=== PATIENT | male | born 2000 | race Hispanic/Latino ===

== ENCOUNTER 2023-12-28 09:29 | Emergency (ER) | payer OTHER ==
[~2023-12-28] VITALS: Ht 170.2 cm; Wt 208.0 kg
[2023-12-28 10:06] VITALS: BP 139/92; TEMP 97.5; O2SAT 97
[2023-12-28] MEDS: IBUPROFEN 800 MG TAB PO ONE (10:18)
[2023-12-28] MEDS ORDERED: IBUP80TA PO (10:33)
== END 2023-12-28 10:46 | disposition home or self-care (01) ==
LOC: EDBD 09:29 → M ED 09:29
DX: M54.50 Low back pain, unspecified (principal); V49.40XA Driver injured in collision with unspecified motor vehicles in traffic accident, initial encounter; Z88.0 Allergy status to penicillin; Z79.1 Long term (current) use of non-steroidal anti-inflammatories (NSAID); Y92.410 Unspecified street and highway as the place of occurrence of the external cause; Y93.89 Activity, other specified; Y99.9 Unspecified external cause status